=== PATIENT | female | born 2005 | race Caucasian/White ===

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

== ENCOUNTER 2025-03-11 18:11 | Emergency (ER) | payer BC ==
[2025-03-11] MEDS ORDERED: Sodium Chloride 0.9% 2.5 ML Syringe FLUSH PRN (18:31)
[2025-03-11] MEDS ORDERED: Sodium Chloride 0.9% 10 ML Syringe FLUSH PRN (18:31)
[2025-03-11 18:58] LABS: BASOPHILS ABSOLUTE AUTO 0.01 K/uL (0.00-0.30); BASOPHILS PERCENT AUTO 0.2 % (0.0-1.0); EOSINOPHILS ABSOLUTE AUTO 0.01 K/uL (0.00-0.70); EOSINOPHILS PERCENT AUTO 0.2 % (0.0-5.0); IMMATURE GRAN ABSOLUTE AUTO 0.01 K/uL (0.00-0.05); IMMATURE GRAN PERCENT AUTO 0.2 % (0.0-0.4); LYMPHOCYTES ABSOLUTE AUTO 0.28 K/uL (2.00-8.80); LYMPHOCYTES PERCENT AUTO 6.2 % (50.0-65.0); MEAN PLATELET VOLUME 9.9 fL (9.4-12.3); MONOCYTES ABSOLUTE AUTO 0.57 K/uL (0.10-1.40); MONOCYTES PERCENT AUTO 12.7 % (2.0-10.0); NEUTROPHILS ABSOLUTE AUTO 3.61 K/uL (1.50-8.50); NEUTROPHILS PERCENT AUTO 80.5 % (35.0-45.0); NRBC ABSOLUTE 0.00 K/uL (0.00-0.03); NRBC PERCENT 0.0 /100WBC (0.0-0.2); PLATELET COUNT,PLT 154 K/uL (150-400); RED BLOOD CELL COUNT 4.26 M/uL (4.10-5.30); WHITE BLOOD CELL COUNT,WBC 4.49 K/uL (4.5-13.5)
[2025-03-11 19:31] LABS: A/G RATIO 1.4 (0.9-1.6); ALANINE AMINOTRANSFERASE,ALT 15.0 IU/L (14-63); ASPARTATE AMNIOTRANSFERASE,AST 15.0 IU/L (15-37); BILIRUBIN TOTAL 0.5 mg/dL (0.2-1.0); BLOOD UREA NITROGEN,BUN 13.0 mg/dL (7.0-18.0); CARBON DIOXIDE,CO2 22.5 mmol/L (21.0-32.0); CHLORIDE,CL 107.0 mmol/L (98-107); CREATININE 1.0 mg/dL (0.6-1.0); EST CRCL DRUG DOSING (CG) 81.42 mL/min; GLUCOSE RANDOM 91.0 mg/dL (74-106); POTASSIUM,K 3.9 mmol/L (3.5-5.1); PROTEIN TOTAL,TP 6.9 g/dL (6.4-8.2); SODIUM,NA 141.0 mmol/L (136-145)
[2025-03-11 19:32] LABS: ESTIMATED GFR 83.0 mL/min (>60)
[2025-03-11] MEDS: Ketorolac 30 MG/ML SDV IVPUSH ONE (19:40)
[2025-03-11 19:43] LABS: LACTIC ACID 0.6 mmol/L (0.4-2.0)
== END 2025-03-11 20:45 | disposition home or self-care (01) ==
LOC: MW.ED 18:11
DX: U07.1 COVID-19 (principal); E86.0 Dehydration; Z79.899 Other long term (current) drug therapy; Z75.3 Unavailability and inaccessibility of health-care facilities
CPT/HCPCS: 36415; 71045; 80053; 83605; 85025; 86308; 87040; 87428; 93005; 96361; 96374; 99284; A9270; J1885; J7030; 93010